=== PATIENT | female | born 1975 ===

== ENCOUNTER 2017-02-07 23:42 | Emergency (ER) | payer BC ==
[2017-02-07 23:50] VITALS: BP 123/74; PULSE 71; RESP 20; TEMP 97.9; O2SAT 100
[2017-02-08] MEDS ORDERED: Sodium Chloride 0.9% 1,000 ML IV STA (00:17)
[2017-02-08 00:44] LABS: BASO # 0.1 K/uL (0.0-0.2); BASO % 1.2 % (0.0-2.0); EOS # 0.7 K/uL (0.0-0.7); EOS % 6.9 % (0.0-4.0); HEMOGLOBIN 12.9 g/dL (12.0-16.0); LYMPH # 3.2 K/uL (1.0-4.3); LYMPH % 33.5 % (20.0-40.0); MEAN CELL VOLUME 92.6 fl (81.0-99.0); MEAN CORPUSCULAR HGB CONC 33.5 g/dL (33.0-37.0); MEAN PLATELET VOLUME 8.2 fl (7.2-11.7); MONO # 0.7 K/uL (0.0-0.8); MONO % 7.3 % (0.0-10.0); NEUT # 4.8 K/uL (1.8-7.0); NEUT % 51.1 % (50.0-75.0); NRBC % 0.1 % (0.0-0.0); RBC 4.14 Mil/uL (3.80-5.20); RED CELL DISTRIBUTION WIDTH 12.7 % (11.5-14.5); WHITE BLOOD COUNT 9.5 K/uL (4.8-10.8)
[2017-02-08 00:48] LABS: BLOOD UREA NITROGEN 18 mg/dl (7-17); CALCIUM 9.2 mg/dL (8.4-10.2); GFR AFRICAN-AMERICAN > 60; GFR NON-AFRICAN AMERICAN > 60
--- NOTE | 2017-02-08 02:53 | ED PDOC ---
HPI: Headache Time Seen by Provider: 02/07/17 23:53 Chief Complaint (Nursing): Headache Chief Complaint (Provider): Headache History Per: Patient History/Exam Limitations: no limitations Onset/Duration Of Symptoms: Days (x5) Current Symptoms Are (Timing): Still Present Quality: Other (Throbbing) Associated Symptoms: Photophobia, Other (Dizziness). denies: Extremity Weakness Additional Complaint(s): 41 year old female presents to ED with complaints of headache x5 days and has a history of anxiety. 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 Describes the headache as throbbing and not maximal on onset. (-) thunderclap, weakness, or numbness/ tingling. (+) dizziness and photophobia. PCP: Ruel Past Medical History Reviewed: Historical Data, Nursing Documentation, Vital Signs Vital Signs: Last Vital Signs Temp 97.9 F 02/07/17 23:48 Pulse 71 02/07/17 23:48 Resp 20 02/07/17 23:48 BP 123/74 02/07/17 23:48 Pulse Ox 100 02/07/17 23:48 - Medical History PMH: Anxiety, Gastritis Denies: No Chronic Diseases - Surgical History Surgical History: Denies: No Surg Hx - Family History Family History: States: Unknown Family Hx - Social History Current smoker - smoking cessation education provided: No Ex-Smoker (has not smoked in the last 12 months): No Alcohol: None Drugs: Denies - Home Medications Home Medications: Ambulatory Orders Medication Instructions Recorded traMADol [Ultram] 50 mg PO Q8 #10 tab 03/04/16 Aspirin/Acetaminophen/Caffeine 1 each PO Q8 #20 tablet 02/08/17 [Excedrin Migraine Geltab] - Allergies Allergies/Adverse Reactions: Allergies Allergy/AdvReac Type Severity Reaction Status Date / Time No Known Allergies Allergy Verified 03/04/16 12:34 Review of Systems ROS Statement: Except As Marked, All Systems Reviewed And Found Negative Eyes: Positive for: Other (Photophobia) Neurological: Positive for: Headache, Dizziness. Negative for: Weakness, Numbness (nor tingling) Physical Exam - Reviewed Nursing Documentation Reviewed: Yes Vital Signs Reviewed: Yes - Physical Exam Appears: Positive for: Uncomfortable Head Exam: Positive for: ATRAUMATIC Skin: Positive for: Normal Color, Warm, Dry Eye Exam: Positive for: Normal appearance, EOMI, PERRL Neck: Positive for: Normal, Painless ROM, Supple Cardiovascular/Chest: Positive for: Regular Rate, Rhythm. Negative for: Murmur Respiratory: Positive for: Normal Breath Sounds. Negative for: Respiratory Distress Gastrointestinal/Abdominal: Positive for: Soft. Negative for: Tenderness Back: Positive for: Normal Inspection Extremity: Positive for: Normal ROM. Negative for: Deformity Neurologic/Psych: Positive for: Alert, junior systems analyst II-XII (intact), Oriented, Cerebellar Tests (intact), Gait (steady). Negative for: Motor/Sensory Deficits - Laboratory Results Result Diagrams: 02/08/17 00:42 02/08/17 00:42 - ECG O2 Sat by Pulse Oximetry: 100 (RA) Pulse Ox Interpretation: Normal Medical Decision Making Medical Decision Makin Initial impression: migraine headache Initial plan: * Labs * NS IV * Reglan 10mg IVP * Toradol 15mg IVP * Re-eval 0323 Upon re-evaluation, patient is feeling much better and is medically stable and ready for discharge. Counseling has been provided and patient is in agreement. Return if symptoms persist or acutely worsen. Scribe Attestation: Documented by Sarah Westbrook acting as a scribe for Aren Glaser MD. Scribe Attestation: All medical record entries made by the Scribe were at my direction and personally dictated by me. I have reviewed the chart and agree that the record accurately reflects my personal performance of the history, physical exam, medical decision making, and the department course for this patient. I have also personally directed, reviewed, and agree with the discharge instructions and disposition. Disposition - Clinical Impression Clinical Impression: Headache - Disposition Referrals: Shaik Lipscomb MD [Primary Care Provider] - Disposition: Routine/Home Disposition Time: 03:23 Condition: STABLE Prescriptions: Aspirin/Acetaminophen/Caffeine [Excedrin Migraine Geltab] 1 each PO Q8 #20 tablet Instructions: Migraine Headache (ED) Print Language: [place]LAND[place]
== END 2017-02-08 | disposition home or self-care (01) ==
LOC: H.ER 23:42
DX: R51 Headache (principal); Z87.891 Personal history of nicotine dependence; Z79.82 Long term (current) use of aspirin
CPT/HCPCS: 80048; 85025; 96361; 96374; 96375; 99284; J1885; J2765; J7040

== ENCOUNTER 2017-07-17 17:08 | Emergency (ER) | payer BC ==
[2017-07-17 17:25] VITALS: BP 116/69; PULSE 77; RESP 18; TEMP 98.3; O2SAT 99
[2017-07-17] MEDS ORDERED: Sodium Chloride 0.9% 1,000 ML IV STA (17:42)
--- NOTE | 2017-07-17 17:45 | ED PDOC ---
HPI: General Adult Time Seen by Provider: 07/17/17 17:34 Chief Complaint (Nursing): Headache History Per: Patient Onset/Duration Of Symptoms: Days (3) Current Symptoms Are (Timing): Still Present Severity: Mild Additional Complaint(s): Chills bodyaches dizziness and nausea x 2 days. No fever or vomiting. Denies cough Past Medical History Vital Signs: Last Vital Signs Temp 98.3 F 07/17/17 17:23 Pulse 77 07/17/17 17:23 Resp 18 07/17/17 17:23 BP 116/69 07/17/17 17:23 Pulse Ox 99 07/17/17 17:45 - Medical History PMH: Anxiety, Gastritis, Migraine - Surgical History Surgical History: - Family History Family History: States: Unknown Family Hx - Home Medications Home Medications: Ambulatory Orders Medication Instructions Recorded traMADol [Ultram] 50 mg PO Q8 #10 tab 03/04/16 Aspirin/Acetaminophen/Caffeine 1 each PO Q8 #20 tablet 02/08/17 [Excedrin Migraine Geltab] Naproxen [Naprosyn] 500 mg PO Q12H #20 tab 07/17/17 - Allergies Allergies/Adverse Reactions: Allergies Allergy/AdvReac Type Severity Reaction Status Date / Time No Known Allergies Allergy Verified 07/17/17 17:22 Review of Systems ROS Statement: Except As Marked, All Systems Reviewed And Found Negative Constitutional: Positive for: Malaise Gastrointestinal: Positive for: Nausea Neurological: Positive for: Dizziness Physical Exam - Reviewed Nursing Documentation Reviewed: Yes Vital Signs Reviewed: Yes - Physical Exam Appears: Positive for: Non-toxic, No Acute Distress Head Exam: Positive for: ATRAUMATIC, NORMAL INSPECTION, NORMOCEPHALIC Skin: Positive for: Normal Color, Warm, DRY Eye Exam: Positive for: EOMI, Normal appearance, PERRL ENT: Positive for: Normal ENT Inspection Neck: Positive for: Normal, Painless ROM Cardiovascular/Chest: Positive for: Regular Rate, Rhythm Respiratory: Positive for: CNT, Normal Breath Sounds Gastrointestinal/Abdominal: Positive for: Normal Exam, Bowel Sounds, Soft Back: Positive for: Normal Inspection Extremity: Positive for: Normal ROM Neurologic/Psych: Positive for: Alert, Oriented - Laboratory Results Result Diagrams: 07/17/17 17:56 07/17/17 17:56 - ECG O2 Sat by Pulse Oximetry: 99 Disposition - Clinical Impression Clinical Impression: Viral illness - Patient ED Disposition Is Patient to be Admitted: No Counseled Patient/Family Regarding: Studies Performed, Diagnosis, Need For Followup, Rx Given - Disposition Referrals: [facility] [Outside] Disposition: Routine/Home Disposition Time: 20:31 Condition: FAIR Prescriptions: Naproxen [Naprosyn] 500 mg PO Q12H #20 tab Instructions: Viral Syndrome (ED) Forms: [employer] (Indonesian)
[2017-07-17 18:01] LABS: BASO # 0.1 K/uL (0.0-0.2); BASO % 0.8 % (0.0-2.0); EOS # 0.5 K/uL (0.0-0.7); EOS % 4.7 % (0.0-4.0); HEMATOCRIT 41.9 % (34.0-47.0); LYMPH # 3.6 K/uL (1.0-4.3); LYMPH % 34.8 % (20.0-40.0); MEAN CELL VOLUME 91.7 fl (81.0-99.0); MEAN CORPUSCULAR HEMOGLOBIN 30.4 pg (27.0-31.0); MEAN CORPUSCULAR HGB CONC 33.2 g/dL (33.0-37.0); MEAN PLATELET VOLUME 7.7 fl (7.2-11.7); MONO # 0.7 K/uL (0.0-0.8); NEUT # 5.5 K/uL (1.8-7.0); NEUT % 52.7 % (50.0-75.0); RED CELL DISTRIBUTION WIDTH 13.1 % (11.5-14.5); WHITE BLOOD COUNT 10.4 K/uL (4.8-10.8)
[2017-07-17 18:25] LABS: ALB/GLOB RATIO 1.3 (1.0-2.1); ALKALINE PHOSPHATASE 97 U/L (38-126); ALT/SGPT 55 U/L (9-52); AST/SGOT 43 U/L (14-36); BILIRUBIN,TOTAL 0.6 mg/dl (0.2-1.3); BLOOD UREA NITROGEN 13 mg/dl (7-17); CALCIUM 9.2 mg/dL (8.4-10.2); CARBON DIOXIDE 26 mmol/L (22-30); CHLORIDE 106 mmol/L (98-107); GFR AFRICAN-AMERICAN > 60; GLUCOSE,RANDOM 99 mg/dL (65-105); POTASSIUM 3.8 MMOL/L (3.6-5.0); SODIUM 140 mmol/l (132-148); TOTAL PROTEIN 7.5 G/DL (6.3-8.2)
== END 2017-07-17 20:37 | disposition home or self-care (01) ==
LOC: H.ER 17:08
DX: B34.9 Viral infection, unspecified (principal); F41.9 Anxiety disorder, unspecified; Z79.82 Long term (current) use of aspirin
CPT/HCPCS: 80053; 81025; 85025; 87804; 96374; 99283; J2405; J7040

== ENCOUNTER 2018-05-20 21:03 | Emergency (ER) | payer BC ==
[2018-05-20 21:30] VITALS: BP 113/68; PULSE 87; RESP 17; TEMP 98.1; O2SAT 100
[2018-05-20] MEDS ORDERED: DiphenhydrAMINE 50 mg/ml Inj IVP STA (22:01)
[2018-05-20] MEDS ORDERED: DiphenhydrAMINE 50 mg/ml Inj ONE (22:36)
[2018-05-20 22:57] LABS: BASO # 0.1 K/uL (0.0-0.2); EOS # 0.5 K/uL (0.0-0.7); EOS % 5.2 % (0.0-4.0); HEMOGLOBIN 12.8 g/dL (12.0-16.0); LYMPH # 3.7 K/uL (1.0-4.3); MEAN CELL VOLUME 92.5 fl (81.0-99.0); MEAN CORPUSCULAR HEMOGLOBIN 31.6 pg (27.0-31.0); MEAN CORPUSCULAR HGB CONC 34.1 g/dL (33.0-37.0); MEAN PLATELET VOLUME 8.4 fl (7.2-11.7); MONO # 0.7 K/uL (0.0-0.8); MONO % 7.2 % (0.0-10.0); NEUT # 4.8 K/uL (1.8-7.0); NEUT % 48.6 % (50.0-75.0); NRBC % 0.1 % (0.0-0.0); RBC 4.07 Mil/uL (3.80-5.20); RED CELL DISTRIBUTION WIDTH 13.2 % (11.5-14.5); WHITE BLOOD COUNT 9.8 K/uL (4.8-10.8)
[2018-05-20 23:03] LABS: BLOOD UREA NITROGEN 17 mg/dl (7-17); CALCIUM 8.7 mg/dL (8.4-10.2); GFR NON-AFRICAN AMERICAN > 60
--- NOTE | 2018-05-20 23:20 | ED PDOC ---
HPI: Headache Time Seen by Provider: 05/20/18 21:52 Chief Complaint (Nursing): Headache Chief Complaint (Provider): Headache History Per: Patient History/Exam Limitations: no limitations Onset/Duration Of Symptoms: Days (x3), Worse Since (x2 days) Current Symptoms Are (Timing): Still Present Pain Scale Rating Of: 10 Quality: Other (throbbing) Additional Complaint(s): 42 year old female with a hx of migraines presents to the ED for evaluation of a left sided, 10/10 throbbing headache for the last three days, worse the last two days, associated with photophobia. Patient reports previous migraines with similar symptoms. Otherwise, (-) meds prior to arrival, (-) fever, (-) chills, (-) neck pain / stiffness, (-) changes in vision, (-) nausea, (-) vomiting, (-) other complaints. LNMP: 05/07/2018 PMD: Martha Past Medical History Reviewed: Historical Data, Nursing Documentation, Vital Signs Vital Signs: Last Vital Signs Temp 98.1 F 05/20/18 21:27 Pulse 87 05/20/18 21:27 Resp 17 05/20/18 21:27 BP 113/68 05/20/18 21:27 Pulse Ox 100 05/20/18 21:27 - Medical History PMH: Anxiety, Gastritis, Migraine - Surgical History Surgical History: Other surgeries: rhinoplasty - Family History Family History: States: Unknown Family Hx - Social History Current smoker - smoking cessation education provided: No Alcohol: None Drugs: Denies - Home Medications Home Medications: Ambulatory Orders Medication Instructions Recorded traMADol [Ultram] 50 mg PO Q8 #10 tab 03/04/16 Aspirin/Acetaminophen/Caffeine 1 each PO Q8 #20 tablet 02/08/17 [Excedrin Migraine Geltab] Naproxen [Naprosyn] 500 mg PO Q12H #20 tab 07/17/17 Acetaminophen/Butalbital/Caf 1 tab PO Q6 PRN #12 tab 05/21/18 [Fioricet] Naproxen 500 mg PO BID PRN #20 tab 05/21/18 - Allergies Allergies/Adverse Reactions: Allergies Allergy/AdvReac Type Severity Reaction Status Date / Time No Known Allergies Allergy Verified 05/20/18 21:30 Review of Systems ROS Statement: Except As Marked, All Systems Reviewed And Found Negative Constitutional: Negative for: Fever, Chills Eyes: Positive for: Other (photophobia). Negative for: Vision Change Gastrointestinal: Negative for: Nausea, Vomiting Musculoskeletal: Negative for: Neck Pain (or stiffness) Neurological: Positive for: Headache (10/10 throbbing pain) Physical Exam - Reviewed Nursing Documentation Reviewed: Yes Vital Signs Reviewed: Yes - Physical Exam Comments: GENERAL APPEARANCE: Patient is awake, alert, oriented x 3, in no acute distress. SKIN: Warm, dry; (-) cyanosis; (-) rash. HEAD: (-) scalp swelling or tenderness, (-) temporal artery tenderness. EYES: (-) conjunctival pallor, (-) scleral icterus. ENMT: Pharynx: clear, uvula midline (-) erythema (-) exudate. (-) sinus tenderness; mucous membranes are moist. NECK: Supple, FROM (-) tenderness, (-) stiffness, (-) meningismus, (-) lymphadenopathy. CHEST AND RESPIRATORY: (-) rales, (-) rhonchi, (-) wheezes; breath sounds equal bilaterally. Respirations nonlabored. HEART AND CARDIOVASCULAR: (-) irregularity ABDOMEN AND GI: Soft; (-) tenderness. EXTREMITIES: (-) deformity. NEURO AND PSYCH: Mental status as above. 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 Gait: steady. Speech: clear.(-) gross sensory deficit. - Laboratory Results Result Diagrams: 05/20/18 22:45 05/20/18 22:45 Urine POC: Negative Urine dip results: Negative for: Leukocyte Esterase, Blood, Nitrate, Ketones, Glucose, Bilirubin, Protein - ECG O2 Sat by Pulse Oximetry: 100 (RA) Pulse Ox Interpretation: Normal Medical Decision Making Medical Decision Making: Initial Impression: migraine headache Time: 2200 Initial Plan: --BMP --U-dip --U-preg --CBC with differential --Benadryl 50mg IVP --Reglan 10mg IVP --Toradol 30mg IM --Glucose, Blood, POC --Reevaluation 2320 CBC and CMP grossly unremarkable. 2340 Udip reviewed and unremarkable. Upreg: negative On re-evaluation, patient with mild improvement of symptoms. Fioricet PO ordered. 0100 On re-evaluation, patient reports improvement of symptoms. On exam, patient remains AAOx3, in no acute distress. Lungs clear to auscultation, cardiac RRR, abdomen soft, non-tender, repeat neuro exam shows no focal findings. VSS, stable for discharge. Lab/Diagnostic results d/w the patient in great detail. Diagnosis of migraine headache d/w the patient. Based on history, exam and diagnostic results, plan will be for outpatient follow up. Patient instructed to follow-up with pmd / referral provided / the clinic in 1- 2 days without fail. Advised to take medication as prescribed. Return to the emergency room at any time for any new or worsening symptoms. Patient states she fully agrees with and understands discharge instructions. States that she agrees with the plan and disposition. Verbalized and repeated discharge instructions and plan. I have given the patient opportunity to ask any additional questions. Scribe Attestation: Documented by Corrine Chow, acting as a scribe for Melita Frye PA-C. Provider Scribe Attestation: All medical record entries made by the Scribe were at my direction and personally dictated by me. I have reviewed the chart and agree that the record accurately reflects my personal performance of the history, physical exam, medical decision making, and the department course for this patient. I have also personally directed, reviewed, and agree with the discharge instructions and disposition. Disposition - Clinical Impression Clinical Impression: Migraine headache - Patient ED Disposition Is Patient to be Admitted: No Counseled Patient/Family Regarding: Studies Performed, Diagnosis, Need For Foll owup, Rx Given - Disposition Referrals: Dawood Thomas Jr., MD [Family Provider] - Disposition: Routine/Home Disposition Time: 01:00 Condition: STABLE Additional Instructions: La atencin mdica de emergencia que recibi hoy se dirigi hacia los sntomas agudos de presentacin. Si le recetaron algn medicamento, llnelo y adminstrelo segn las indicaciones. Los sntomas pueden tardar varios jones en resolverse. Regrese al Departamento de Emergencias en cualquier momento si los sntomas empeoran, no mejoran o si surgen otros problemas. Comunquese con balderrama mdico dentro de 2 jones para veronica nueva evaluacin y pippa un seguimiento o llame a miroslava de los mdicos / clnicas a los que upton sido referido y que figuran en el formulario de Informacin de visita al paciente que se incluye en balderrama paquete de edilma. Lleve todos los documentos que le entregaron al momento del edilma junto con cualquier medicamento a balderrama visita de seguimiento. Nuestro tratamiento no puede reemplazar la atencin mdica continua por parte de un proveedor de atencin primaria (PCP) fuera del departamento de emergencias. Prescriptions: Acetaminophen/Butalbital/Caf [Fioricet] 1 tab PO Q6 PRN #12 tab PRN Reason: Headache Naproxen 500 mg PO BID PRN #20 tab PRN Reason: Headache Instructions: Headache, Adult, Migraine Headache (DC) Forms: [employer] (Lao) Print Language: CZECH - POA Present On Arrival: None Results - Lab Results Lab Results: 05/20/18 05/20/18 22:45 22:45 WBC 9.8 RBC 4.07 Hgb 12.8 Hct 37.7 MCV 92.5 MCH 31.6 H MCHC 34.1 RDW 13.2 Plt Count 211 MPV 8.4 Neut % (Auto) 48.6 L Lymph % (Auto) 38.0 [place] % (Auto) 7.2 Eos % (Auto) 5.2 H Baso % (Auto) 1.0 Neut # (Auto) 4.8 Lymph # (Auto) 3.7 [place] # (Auto) 0.7 Eos # (Auto) 0.5 Baso # (Auto) 0.1 Sodium 139 Potassium 3.9 Chloride 109 H Carbon Dioxide 25 Anion Gap 9 L BUN 17 Creatinine 0.6 L Est GFR ( Amer) > 60 Est GFR (Non-Af Amer) > 60 Random Glucose 105 Calcium 8.7
[2018-05-20] MEDS ORDERED: Apap-Butalbital-Caffeine 325-50-40mg Tab PO STA (23:39)
[2018-05-21] MEDS ORDERED: Apap-Butalbital-Caffeine 325-50-40mg Tab ONE (00:40)
== END 2018-05-21 00:12 | disposition home or self-care (01) ==
LOC: H.ER 21:03
DX: G43.909 Migraine, unspecified, not intractable, without status migrainosus (principal); F41.9 Anxiety disorder, unspecified
CPT/HCPCS: 80048; 85025; 96372; 96374; 96375; 99285; J1200; J1885; J2765